=== PATIENT | male | born 1975 | race Caucasian/White ===

== ENCOUNTER 2021-09-26 19:59 | Emergency (ER) | payer BC ==
[~2021-09-26] VITALS: Ht 180.3 cm; Wt 125.0 kg
[2021-09-26 20:07] VITALS: BP 124/83; PULSE 104; TEMP 97.8
[2021-09-26] MEDS ORDERED: CHOLESTEROL MED (20:32)
[2021-09-26] MEDS ORDERED: BLOOD PRESSURE (20:32)
[2021-09-26] MEDS ORDERED: AMOXICILLIN 50500 MG PO (20:57)
== END 2021-09-26 21:30 | disposition home or self-care (01) ==
LOC: COL.ER 19:59
DX: S01.511A Laceration without foreign body of lip, initial encounter (principal); S01.512A Laceration without foreign body of oral cavity, initial encounter; Z23 Encounter for immunization; V86.56XA Driver of dirt bike or motor/cross bike injured in nontraffic accident, initial encounter; Y93.55 Activity, bike riding; Y92.828 Other wilderness area as the place of occurrence of the external cause